=== PATIENT | male | born 1950 | race Caucasian/White ===

== ENCOUNTER 2017-12-31 06:37 | Day surgery (SDC) | payer OTHER, MEDICARE ==
[2017-12-31] MEDS ORDERED: diphenhydrAMINE 25 MG CAP PO ONE ×2 (06:43→07:20)
[2017-12-31] MEDS ORDERED: ASPIRIN EC 325 MG TAB PO ONE ×2 (06:43→07:21)
[2017-12-31] MEDS ORDERED: DIAZEPAM 5 MG TAB PO ONE (06:43)
[2017-12-31] MEDS ORDERED: FAMOTIDINE 20 MG TAB PO ONE (06:43)
[2017-12-31] MEDS ORDERED: NS 1,000 ML IV ONE (06:43)
--- NOTE | 2017-12-31 07:04 | CPEKG ---
Heart Rate: 64 RR Interval: 938 P-R Interval: 184 QRSD Interval: 104 QT Interval: 392 QTC Interval: 405 P Harford: -5 QRS Harford: -46 T Wave Harford: 11 EKG Severity - ABNORMAL ECG - EKG Impression: SINUS RHYTHM EKG Impression: PROBABLE INFERIOR INFARCT, AGE INDETERMINATE Electronically Signed By: Jerome Juares 31-Dec-2017 07:16:47
[2017-12-31] MEDS ORDERED: FAMOTIDINE 20 MG TAB ONE (07:20)
[2017-12-31] MEDS ORDERED: DIAZEPAM 5 MG TAB ONE (07:21)
[2017-12-31 07:23] LABS: PLATELET COUNT 197 10^3/uL (150-400)
[2017-12-31] MEDS ORDERED: MIDAZOLAM 2 MG/2 ML VIAL ONE ×2 (07:26)
[2017-12-31] MEDS ORDERED: fentaNYL 100 MCG/2 ML INJ ONE (07:26)
[2017-12-31] MEDS ORDERED: LIDOCAINE 1% 300 MG/30 ML SDV ONE (07:26)
[2017-12-31] MEDS ORDERED: HEPARIN 10,000 UNIT/10 ML MDV (1,000 UNIT/ML) ONE (07:27)
[2017-12-31] MEDS ORDERED: VERAPAMIL 5 MG/2 ML VIAL ONE (07:27)
[2017-12-31] MEDS ORDERED: IOPAMIDOL (ISOVUE-370) 150 ML BTL IV ONE ×2 (07:27→08:39)
[2017-12-31 07:32] LABS: INR 0.99 (0.83-1.16); PROTIME(PATIENT) 13.3 SEC (12.0-15.0)
--- NOTE | 2017-12-31 08:00 | PDHPUP ---
History & Physical Update H&P update statement: This history and physical update is based on an assessment of the patient which was completed after admission or registration (within 24 hours), but prior to the surgery/procedure. H&P update: H&P reviewed & patient examined, no change in patient's condition since H&P completed
--- NOTE | 2017-12-31 08:00 | PDPROPOC ---
Sedation Plan of Care Sedation Plan of Care: vital signs stable, mental status noted, patient educated of risks, benefits, alternatives, patient can tolerate sedation ASA Classification: ASA 3 Planned drugs: fentanyl, midazolam Mallampati Score: Class 3 Mallampati Reference Image: Patient passed 3-3-2 rule?: Yes
[2017-12-31] MEDS ORDERED: ONDANSETRON 4 MG/2 ML VIAL IVP PRN (08:48)
[2017-12-31] MEDS ORDERED: NITROGLYCERIN 0.4 MG BTL SL PRN (08:48)
[2017-12-31] MEDS ORDERED: ATROPINE SULFATE 1 MG/10 ML SYR IVP PRN (08:48)
[2017-12-31] MEDS ORDERED: HYDROCODONE/APAP 5/325 TAB PO PRN (08:48)
[2017-12-31] MEDS ORDERED: OXYCODONE/APAP 5/325 TAB PO PRN (08:48)
--- NOTE | 2017-12-31 09:13 | PDDXCAT ---
Diagnostic Cath Note - . Date: 12/31/17 [employer] Technician: Kristopher Indication: CCC Class III and IV angina on medical treatment - Procedure Access: left wrist Procedure: left heart catheterization, coronary angiography, left ventriculogram - Materials Left Heart Cath size: 6F Left Heart Cath materials: standard multipack (JL4, JR4, pigtail) - Findings-Left Heart Catheterization LM: 6 mm in size without disease which trifurcates into an LAD circumflex and ramus intermedius. LAD: 5mm in size without flow limiting obstruction. Distally the vessel is small and very tortuous, query possible intramyocardial course. LCX: 3mm in size without significant disease flow limiting obstruction RCA: 5mm in size and a dominant vessel giving rise to a PDA and PLV branches. Ramus: 2.5 in size. NESTOR III flow with no flow limiting obstruction. EDP: 18mmHg. LVEF: 60% Wall motion: normal with no segmental wall motion abnormality. Complications: None Closure method: TR Band Assessment: The patient has non flow limiting coronary disease with maximal luminal stenosis of 5-10% of the proximal LAD. The difference in size of a very large RCA and very small distal LAD is the likely cause of a relative perfusion deficit on stress test of the anterior wall. The patient appears to be a good candidate for medical therapy. Plan: As above. good candidate for medical management. Intervention: None
== END 2017-12-31 12:10 | disposition home or self-care (01) ==
LOC: FCATH 06:37
PROVIDERS: ATTEND Internal Medicine Cardiovascular Disease
DX: I25.119 Atherosclerotic heart disease of native coronary artery with unspecified angina pectoris (principal); I10 Essential (primary) hypertension; E78.5 Hyperlipidemia, unspecified; E11.9 Type 2 diabetes mellitus without complications; Z87.891 Personal history of nicotine dependence
CPT/HCPCS: 93005; 93458; C1769; J1644; J2250; J3010; Q9967